=== PATIENT | male | born 1985 | race Caucasian/White ===

== ENCOUNTER → 2024-10-06 | Outpatient (CLI) | payer BC ==
--- NOTE | 2024-10-06 17:37 | US ---
EXAMINATION TYPE: US venous doppler duplex LE BI DATE OF EXAM: 10/06/2024 4:43 PM COMPARISON: NONE CLINICAL INDICATION: Male, 38 years old with history of I73.9 PERIPHERAL VASCULAR DISEASE, UNSPECIFIE D; , Pain TECHNIQUE: The lower extremity deep venous system is examined utilizing real time linear array sonog alexa with graded compression, color doppler sonography, and spectral doppler. SIDE PERFORMED: Bilateral FINDINGS: VESSELS IMAGED: Common Femoral Vein Deep Femoral Vein Greater Saphenous Vein * Femoral Vein Popliteal Vein Small Saphenous Vein * Proximal Calf Veins (* superficial vessels) Right Leg: Appears negative for DVT Left Leg: Appears negative for DVT IMPRESSION: No ultrasound evidence for deep venous thrombosis. [facility], , 10/06/2024 5:34 PM
== END | disposition home or self-care (01) ==
LOC: RADUSWWP 16:11
PROVIDERS: ATTEND Family Medicine
DX: I73.9 Peripheral vascular disease, unspecified (principal)
CPT/HCPCS: 93970